=== PATIENT | male | born 1950 | race Caucasian/White ===

== ENCOUNTER 2016-09-10 15:18 | Inpatient (IN) ==
--- NOTE | 2016-09-10 15:29 | Emergency Department Note ---
Disposition Clinical Impression: Chest pain Disposition: Admitted As Inpatient Condition: Good Referrals: NO,PCP [Primary Care Provider] - Forms: ED Satisfaction Letter Chest Pain HPI - General Chief Complaint: ED Chest Pain Stated Complaint: CP Source: patient Limitations: no limitations Vital Signs Reviewed: Yes Nursing Notes Reviewed: Yes - History of Present Illness HPI Narrative: Patient comes in complaining of chest pain that started on Tuesday. Patient states that exertional in nature. He notes that when he ambulates to chest pain come on. Patient denies shortness of breath denies prior history of similar symptoms. Patient was seen at the [facility] for routine follow-up and while he was there working on the whole he had another episode of chest pain. Patient describes the pain as a pressure but does not radiate. Appears in little distress. Patient denies numbness and tingling denies fevers or chills. Patient denies catheterization or stress test in the past. Patient denies prior history of symptoms. Patient is currently chest pain free. At the [facility] patient had blood work done that was significant for troponin that was 0.08. Severity scale (1-10): 0 - Related Data Previous Rx's Medication Instructions Recorded HYDROcodone/Acet 5/325 mg [[place] 1 tab PO Q6H PRN #5 tab 01/12/16 5-325 mg] Ibuprofen [Motrin] 800 mg PO Q8HR PRN #30 tablet 01/12/16 Ondansetron HCl [Zofran] 4 mg PO DAILY PRN #20 tablet 01/12/16 Allergies Allergy/AdvReac Type Severity Reaction Status Date / Time No Known Allergies Allergy Verified 01/12/16 04:55 All systems ED: reviewed and negative except as stated. Chest Pain PMH - Past Medical History Medical history: Reports: hyperlipidemia, hypertension Psychiatric history: Reports: anxiety, depression - Social History Smoking Status: Current every day smoker Alcohol use: Reports: occasionally Drug use: Reports: none Physical Exam - General Limitations: no limitations General appearance: alert - Head Head exam: atraumatic, normocephalic, normal inspection - Eye Eye exam: Present: normal appearance, PERRL, EOMI - ENT ENT exam: normal exam, normal oropharynx, mucous membranes moist - Neck Neck exam: Present: normal inspection, full ROM, trachea midline - Chest Chest inspection: Present: normal inspection, symmetric chest wall rise - Respiratory Respiratory exam: Present: normal lung sounds bilaterally - Cardiovascular Cardiovascular exam: Present: regular rate, normal rhythm, normal heart sounds - Abdominal Exam Abdominal exam: Present: soft, Non-Tender. Absent: tenderness, distention, guarding, rebound, rigidity - Extremities Exam Extremities exam: Present: normal inspection, full ROM. Absent: tenderness, pedal edema - Back Exam Back exam: Present: normal inspection, full ROM. Absent: tenderness - Neurological Exam Neurological exam: Present: alert, oriented X3 - Psychiatric Psychiatric exam: Present: normal affect, normal mood - Skin Skin exam: Present: warm, dry, intact, normal color Course Vital Signs Temperature 97.9 F 09/10/16 15:20 Pulse Rate 84 09/10/16 15:20 Respiratory Rate 22 09/10/16 15:20 Blood Pressure 140/98 09/10/16 15:20 O2 Sat by Pulse Oximetry 98 09/10/16 15:20 Temperature 97.9 F 09/10/16 15:20 Pulse Rate 84 09/10/16 15:20 Respiratory Rate 22 09/10/16 15:20 Blood Pressure 140/98 09/10/16 15:20 O2 Sat by Pulse Oximetry 98 09/10/16 15:20 Oxygen Delivery Oxygen Delivery Room Air Chest Pain - Differential Diagnosis Likely: fracture of rib, pneumothorax, unstable angina pectoris, atypical chest pain, st elevation myocardial infraction, chest pain - Medical Records Medical records reviewed: Yes I reviewed the patient's medical records. - Lab Data Lab results reviewed: Yes I reviewed the patient's lab results. - EKG Data EKG results narrative: EKG is unchanged from previous EKG shows normal: sinus rhythm Rate: normal Rhythm: NSR
[2016-09-10] MEDS ORDERED: Naloxone 0.4 MG/ML INJ IVP PRN (17:47)
--- NOTE | 2016-09-10 18:01 | Internal Med History&Physical ---
Date of Encounter: 09/10/16 Time of Encounter: 17:55 Assessment and Plan (1) Chest pain Current visit: Yes Status: Acute Patient reporting exertional chest pain since Tuesday along with fatigue. He reports pain occurs each time he walks, and is relieved by rest. EKG with no changes. Initial troponin from [facility] elevated to 0.08. Repeat troponin here increased to 0.12. aspirin 325mg PO given by [facility] Consulted cardiology, spoke with Dr. Gonzalez, who recommended a loading dose of Plavix at 600mg PO, a low dose beta rizwan and heparin drip. He will see patient in the morning and most likely plan for a cardiac cath. Qualifiers: Chest pain type: precordial pain Qualified Code(s): R07.2 - Precordial pain (2) Elevated troponin Current visit: Yes Status: Acute Troponin of 0.08 from [facility], EKG with normal sinus and no changes from previous EKG in January. serial troponins for trend. Continuous teletypesetter monitor (3) Smoker Current visit: Yes Status: Acute Patient has smoked 1PPD since he was 18, for 48 pack years. Discussed smoking as a contributor to COPD and risk factor for cardiovascular disease. Discussed smoking cessation. Patient not ready to quit. offered nicotine patch while hospitalized, patient declined. (4) DVT prophylaxis Current visit: Yes Status: Acute Internal Medicine - H&P: HPI Chief complaint: chest pain Admitted From: Emergency Dept Plans for Post Hospital Care: Home History of present illness: Mr. Muhammad is a 66 year old male with hyperlipidemia, COPD, recent surgery for bladder cancer, who presented to the [facility] today with complaints of exertional chest pain for one week. He reports pain starts when he walks it is in the middle of his chest, it does not radiate. He denies any shortness of breath but reports that he has been feeling fatigued the last week. He denies any lightheadedness, dizziness, fainting, palpitations, nausea, or vomiting. He denies any recent infection, fever, chills. Workup at the [facility] was significant for elevated troponin to 0.08, EKG showed no changes from prior EKG in December with sinus rhythm. D-dimer was negative at 0.40, BNP was normal at 150. Patient reports he did have a stress test 1-2 months ago at [facility], he reports this was for routine annual checkup, not for any symptoms he was having at the time. We will attempt to obtain the record. On exam patient is alert and oriented, in no distress. He denies any current pain but reports he knows it would happen again if he got up to walk. Heart has regular rate and rhythm, lungs are clear bilaterally. Past Med Surg Social Fam HX - Past Medical History Medical history: cancer (bladder cancer s/p resection), COPD, hyperlipidemia Psychiatric history: anxiety, depression - Past Surgical History Surgical History: cancer surgery (Bladder tumor resectin) - Social History Smoking Status: Current every day smoker (48 pack year history) Smokeless Tobacco Status: No Alcohol use: occasionally Drug use: none - Family History Mother Living Status: Age at : 63 Cause of : brain aneurysm Father Living Status: Age at : 53 Cause of : [place] Internal Medicine - H&P: Meds Albuterol Sulfate [Albuterol Inhaler] 2 puff IH Q4H PRN 09/10/16 [History] Finasteride [Proscar] 5 mg PO DAILY 09/10/16 [History] Loratadine [Claritin] 10 mg PO DAILY 09/10/16 [History] Multivitamin [Multi-Day Vitamins] 1 each PO DAILY 09/10/16 [History] Oxybutynin Chloride [Ditropan Xl] 15 mg PO DAILY 09/10/16 [History] Sildenafil Citrate [Viagra] 100 mg PO DAILY PRN 09/10/16 [History] Tamsulosin [Flomax] 0.4 mg PO DAILY 09/10/16 [History] Tiotropium [Spiriva] 18 mcg IH DAILY 09/10/16 [History] Allergies No Known Allergies Allergy (Verified 01/12/16 04:55) All Systems PM: A 10-system review of systems was performed and is negative for pertinent findings except as documented above in the HPI. - Constitutional Constitutional: fatigue, no chills, no fever(s), no night sweats - EENT Eyes: no change in vision, no discharge, no pain, no photophobia Ears: no ear discharge, no ear pain, no tinnitus Nose, mouth and throat: no dysphagia, no nasal discharge, no neck pain, no sore throat - Cardiovascular Cardiovascular ROS IM: chest pain, no diaphoresis, no dyspnea, no lightheadedness, no palpitations, no syncope - Respiratory Respiratory: no cough, no dyspnea, no wheezing, no excessive phlegm production - Gastrointestinal Gastrointestinal: no abdominal pain, no diarrhea, no hematemesis, no hematochezia, no melena, no nausea, no vomiting - Musculoskeletal Musculoskeletal ROS IM: no numbness, no tingling - Integumentary Integumentary IM: no rash, no unusual bruising - Neurological Neurological ROS: no confusion, no convulsions, no focal weakness, no numbness, no tingling, no tremor(s) - Hematologic/Lymphatic Hematologic/Lymphatic: no easy bruising - Constitutional Vitals: Temp Pulse Resp BP Pulse Ox 97.7 F 76 16 151/95 98 09/10/16 17:19 09/10/16 17:19 09/10/16 17:19 09/10/16 17:19 09/10/16 17:35 General appearance: Present: A&O X 3, no acute distress - Head Head exam: Present: atraumatic, normocephalic - Eye Eye exam: Present: PERRL, conjuntiva pink, sclera anicteric Pupils: Present: PERRL - Neck Neck exam general surgery: Present: supple, trachea midline. Absent: lymphadenopathy - Respiratory Respiratory exam: Present: CTAB. Absent: accessory muscle use, rales, rhonchi, wheezes - Cardiovascular Cardiovascular exam: Present: RRR, +S1, +S2. Absent: diastolic murmur, gallop, rubs, systolic murmur - GI/Abdominal GI/Abdominal exam: Present: normal bowel sounds, soft, no peritoneal signs. Absent: distended, tenderness - Extremities Exam Extremities exam: Present: warm, radial pulses palpable and symetrical. Absent : calf tenderness, cyanotic, pedal edema - Neurological Exam Neurological exam: Present: CN II-XII intact, oriented X3, no focal deficits. Absent: pronater drift, facial droop, speech deficit - Skin Skin exam: Present: dry, intact Internal Med - H&P Results - Labs CBC & Chem 7: 09/10/16 18:58 09/10/16 18:31 Labs: Labs from [facility]: Troponin 0.08 BNP 150 CK 145 AST 39 ALT 25 Total Bili 0.6 Alk phos 138 CA 8.6 total protein 7.5 Albumin 3.7 Mg 2.3 NA 140 potassium: hemolyzed Cl 109 CO2 24 Glucose 89 BUN 16 Cr 0.94 WBC 7.9 RBC 5.0 HGB 16.0 HCT 46.6 PLT 211.0 - VTE Documentation of Mechanical Device: Graduated compression elastic hosiery
[2016-09-10] MEDS ORDERED: Aspirin 325 MG TABLET PO ONE (18:38)
[2016-09-10] MEDS ORDERED: *HR* Heparin 5,000 UNIT/ML VIAL IVP PRN ×2 (18:43)
[2016-09-10] MEDS ORDERED: *HR* Heparin 5,000 UNIT/ML VIAL IVP ONE (18:43)
[2016-09-10] MEDS ORDERED: Heparin 25,000 UNIT/500 ML D5W 25,000 UNIT/500 ML MLS IVC SCH (18:45)
[2016-09-10 19:03] LABS: BUN/Creatinine Ratio 25 (6-26); Blood Urea Nitrogen 21 mg/dL (8-26); Calcium 8.9 mg/dL (8.6-10.8); Carbon Dioxide 20 mEq/L (19-29); Chloride 108 mEq/L (98-109); Glucose 99 mg/dL (70-99); Osmolality,Calculated 293 (280-300); Sodium 140 mEq/L (136-145); eGFR For African Americans > 60 (> 60); eGFR For Non-African Americans > 60 (> 60)
[2016-09-10 19:08] LABS: Hematocrit 43.4 % (37.5-50.1); Hemoglobin 15.1 g/dL (12.9-16.9); Immature Platelets 3.3 % (1.1-6.1); Mean Corpuscular HGB Conc 34.8 g/dL (31.6-35.5); Mean Corpuscular Hemoglobin 32.1 pg (28.0-33.3); Mean Corpuscular Volume 92.1 fL (83.0-100.0); Mean Platelet Volume 9.7 fL (9.4-12.4); Red Blood Count 4.71 M/mcL (4.19-5.50); Red Cell Distribution Width 12.8 % (11.5-14.5)
[2016-09-10 19:13] LABS: INR 1.2; Prothrombin Time 12.8 Seconds (9.4-12.1)
[2016-09-10 19:16] LABS: Activated Partial Thrombo Time 33.9 Seconds (26.0-36.0)
[2016-09-10] MEDS ORDERED: *HR* Heparin 5,000 UNIT/ML VIAL SQ SCH (20:00)
[2016-09-11 05:09] LABS: Basophils # 0.1 K/mcL (0.0-0.2); Eosinophils # 0.1 K/mcL (0.0-0.6); Eosinophils % 0.8 %; Hematocrit 41.7 % (37.5-50.1); Hemoglobin 14.8 g/dL (12.9-16.9); Immature Granulocytes % 0.4 % (0-4); Lymphocytes # 2.2 K/mcL (0.6-4.6); Lymphocytes % 29.2 %; Mean Corpuscular HGB Conc 35.5 g/dL (31.6-35.5); Mean Corpuscular Hemoglobin 32.6 pg (28.0-33.3); Mean Corpuscular Volume 91.9 fL (83.0-100.0); Mean Platelet Volume 10.3 fL (9.4-12.4); Monocytes # 0.7 K/mcL (0.0-1.3); Monocytes % 8.5 %; Neutrophils # 4.6 K/mcL (1.6-8.9); Platelet Count 197 K/mcL (140-400); Red Blood Count 4.54 M/mcL (4.19-5.50); Red Cell Distribution Width 12.8 % (11.5-14.5); Segmented Neutrophils % 60.1 %
[2016-09-11 05:22] LABS: BUN/Creatinine Ratio 25 (6-26); Blood Urea Nitrogen 21 mg/dL (8-26); Carbon Dioxide 20 mEq/L (19-29); Chloride 108 mEq/L (98-109); Chol/HDL Ratio 6.5 (0-4.9); Cholesterol 213 mg/dL (< 200); Glucose 89 mg/dL (70-99); HDL Cholesterol 33 mg/dL (40-59); LDL Cholesterol,Calculated 155 mg/dL (0-99); Osmolality,Calculated 290 (280-300); Potassium 3.8 mEq/L (3.5-4.5); Sodium 139 mEq/L (136-145); Triglycerides 124 mg/dL (< 150); eGFR For African Americans > 60 (> 60); eGFR For Non-African Americans > 60 (> 60)
[2016-09-11] MEDS: Tiotropium 18 MCG inhalation IH SCH (07:41)
[2016-09-11] MEDS: Finasteride 5 MG TABLET PO SCH (08:04)
[2016-09-11] MEDS: Loratadine 10 MG TABLET PO SCH (08:04)
[2016-09-11] MEDS: Multivit/Ca/Min/Fe/FA 1 TAB TABLET PO SCH (08:05)
[2016-09-11] MEDS: Nitroglycerin 0.4 MG TAB.SUBL SL PRN ×3 (08:30→22:11)
--- NOTE | 2016-09-11 08:42 | Cardiology Consult Note ---
Date of Encounter: 09/11/16 Time of Encounter: 08:32 Assessment and Plan (1) Non-STEMI (non-ST elevated myocardial infarction) Current Visit: Yes Status: Acute Late presenting VT. C/o chest pain for one week. Troponin 0.26, 0.25, and 0.12. EKG shows normal sinus rhythm, heart rate 67 bpm, possible previous inferior VT. Heparin drip per ACS protocol. Aspirin, statin, beta rizwan, and Plavix. Check TTE. Patient continues to have chest discomfort. Instructed nursing staff to give him nitroglycerin. LHC including risks, alternatives, benefits, and indications discussed with patient. He agrees to proceed. Smoking cessation and aggressive risk factor modification. (2) Hypertension Current Visit: Yes Status: Acute B/p accepatble. Qualifiers: Hypertension type: essential hypertension Qualified Code(s): I10 - Essential (primary) hypertension (3) Bladder cancer Current Visit: Yes Status: Chronic Reports recent diagnosis of bladder cancer status post cystoscopy with biopsies. Awaiting follow-up with oncology. CT scan 12/2015 showed acute cholecystitis without cholelithiasis. Coronary artery disease. A right lower lobe pulmonary nodule. Repeat CT in 3 months recommended to evaluate pulmonary nodule. And a possible bladder tumor. Patient did proceed with cystoscopy with bladder scraping. Qualifiers: Bladder location: unspecified site Qualified Code(s): C67.9 - Malignant neoplasm of bladder, unspecified (4) Smoker Current Visit: Yes Status: Acute Smoking cessation. (5) Cholecystitis Current Visit: Yes Status: Chronic CT in December 2015 showed acute cholecystitis without cholelithiasis. Follow-up ultrasound showed possible chronic cholecystitis. Patient denies recurrent abdominal pain. Cholecystectomy was deferred secondary to bladder cancer at that time. Discussion w patient/family: The assessment and plan as outlined above was discussed with the patient and/or family members who expressed understanding and agreement. All questions were answered. Thank you for involving us in the care of your patient. Please call with any questions. History of Present Illness Consult date: 09/11/16 Requesting physician: Gianna Wise Consult reason: NSTEMI Chief complaint: Chest pain History of present illness: Mr. Muhammad is a 66 year old male who presented with intermittent midsternal chest pain with exertion since Tuesday. He associates his symptoms with shortness of breath, nausea, and dizziness. He currently has midsternal heaviness that is constant. He reports overall malaise for the last 24 hours. Past medical history includes recently diagnosed bladder cancer, hypertension, and tobacco use for 60 years. Troponins are found to be elevated at 0.26, 0.25, 0.16. His EKG shows normal sinus rhythm possible old inferior VT. Past Med Surg Social Fam HX - Past Medical History Medical history: cancer (bladder cancer s/p resection), COPD, hyperlipidemia Psychiatric history: anxiety, depression - Past Surgical History Surgical History: cancer surgery (Bladder tumor resectin) - Social History Smoking Status: Current every day smoker (48 pack year history) Smokeless Tobacco Status: No Alcohol use: occasionally Drug use: none - Family History Mother Living Status: Age at : 63 Cause of : brain aneurysm Father Living Status: Age at : 53 Cause of : [place] Medications and Allergies Albuterol Sulfate [Albuterol Inhaler] 2 puff IH Q4H PRN 09/10/16 [History] Finasteride [Proscar] 5 mg PO DAILY 09/10/16 [History] Loratadine [Claritin] 10 mg PO DAILY 09/10/16 [History] Multivitamin [Multi-Day Vitamins] 1 each PO DAILY 09/10/16 [History] Oxybutynin Chloride [Ditropan Xl] 15 mg PO DAILY 09/10/16 [History] Sildenafil Citrate [Viagra] 100 mg PO DAILY PRN 09/10/16 [History] Tamsulosin [Flomax] 0.4 mg PO DAILY 09/10/16 [History] Tiotropium [Spiriva] 18 mcg IH DAILY 09/10/16 [History] Allergies No Known Allergies Allergy (Verified 01/12/16 04:55) All Systems Review: A 10-system review of systems was performed and is negative for pertinent findings except as documented above in the HPI. Physical Examination Vital Signs, Last 4 Hours Temp Pulse Resp BP Pulse Ox 09/11/16 07:42 18 98 09/11/16 07:00 63 14 140/87 98 09/11/16 05:35 97.7 F 61 16 129/83 99 General: Conversant, No Apparent Distress, Other (Ill appearing) HEENT: Atraumatic, Normocephaly, Mucus Membranes Moist Neck: No JVD, Normal carotid pulses Cardiac: Reg Rate and Rhythm, Normal S1 and S2, No Murmur Lungs: Normal Breath Sounds, No Wheeze, Rales, Rhonchi Neuro: Alert and responsive, No focal deficits noted Abdomen: Soft, Non-Tender Skin: No rashes noted on visualized skin Musculoskeletal: No Chest Wall Tenderness Extremities: No Clubbing, No Cyanosis, No Edema, Normal Pulses Results 09/11/16 03:30 09/11/16 03:30 Lab Results 09/10/16 09/10/16 09/10/16 17:26 18:31 18:58 WBC 8.0 Hgb 15.1 Hct 43.4 Plt Count 235 INR APTT Sodium 140 Potassium 4.0 Chloride 108 Carbon Dioxide 20 BUN 21 Creatinine 0.84 Glucose 99 Calcium 8.9 Troponin I 0.12 H* 09/10/16 09/11/16 09/11/16 18:58 00:55 03:30 WBC Hgb Hct Plt Count INR 1.2 APTT 33.9 58.1 H D Sodium Potassium Chloride Carbon Dioxide BUN Creatinine Glucose Calcium Troponin I 0.25 H* 09/11/16 09/11/16 09/11/16 03:30 03:30 05:35 WBC 7.6 Hgb 14.8 Hct 41.7 Plt Count 197 INR APTT Sodium 139 Potassium 3.8 Chloride 108 Carbon Dioxide 20 BUN 21 Creatinine 0.85 Glucose 89 Calcium 9.0 Troponin I 0.26 H* - Imaging and Cardiology Echo: pending - EKG Interpretation EKG results cardiology: personally reviewed (Sinus rhythm with no acute ST changes. Possible old inferior VT.) Consult Discharge Plan - Plan [facility]errals: [facility] [Primary Care Provider] -
--- NOTE | 2016-09-11 10:47 | Pre-Sedation Evaluation ---
Pre-sedation evaluation - Pre-sedation checklist Date of procedure: 09/11/16 Procedure: Cardiac cath Recent Vitals: Last Vital Signs Temp 97.7 F 09/11/16 05:35 Pulse 63 09/11/16 07:00 Resp 18 09/11/16 07:42 BP 140/87 09/11/16 07:00 Pulse Ox 98 09/11/16 07:42 H&P (including ROS) documented in medical record: Yes Previous reaction to sedatives/anesthetics: No Dietary Status: NPO after Midnight Airway Assessment: Patient can open mouth completely, TMJ function normal, Micrognathia (under-bite, receding chin) absent, Neck with adequate range of motion Dentition: dentures removed Possible difficult airway: No ASA Classification *see protocol: CLASS II-Mild systemic disease Plan of Care: Pt appropriate candidate for procedure/moderate/conscious sedation , Risks/benefits of procedure/sedation discussed w/ patient/family
[2016-09-11] MEDS ORDERED: 0.9 % Sodium Chloride 1,000 ML ONE ×3 (10:49→14:02)
[2016-09-11] MEDS ORDERED: Nitroglycerin 1,000 MCG/10 ML VIAL IV ONE (10:49)
[2016-09-11] MEDS ORDERED: Heparin 1,000 UNITS/500 mL NS 500 ML ONE (10:49)
[2016-09-11] MEDS ORDERED: *HR* Heparin 10,000 UNIT/10 ML VIAL ONE (10:49)
[2016-09-11] MEDS ORDERED: *HR* FentaNYL (PF) 100 MCG/2 ML VIAL ONE (11:15)
[2016-09-11] MEDS ORDERED: *HR* Midazolam HCl 5 MG/5 ML VIAL IVP ONE (11:15)
--- NOTE | 2016-09-11 12:00 | Internal Med Progress Note ---
<Rosales Lobo - Last Filed: 09/11/16 11:58> Date of Encounter: 09/11/16 Time of Encounter: 09:30 - Assessment and plan (1) Non-STEMI (non-ST elevated myocardial infarction) Current Visit: Yes Status: Acute Assessment and plan: It is suspected that his symptoms are a late presentation of MA, with his history of chest pain for one week. His troponin levels are 0.25, 0.26, 0.12 and EKG was normal sinus rhythm. He is currently on a heparin drip and on aspirin, statin, beta rizwan, Plavix. Awaiting [facility] catheterization. Patient risk factors include current smoker, hypercholesterolemia, hypertension. Family history significant for father from MA at the age of 53. Plan: - [facility] today. - Continue aspirin, Plavix, heparin drip, atorvastatin, metoprolol at this time. - Awaiting post catheterization results and recommendations from cardiology. - Transthoracic echocardiogram ordered per cardiology awaiting results. (2) Hypercholesterolemia Current Visit: Yes Status: Acute Assessment and plan: Cholesterol 213, LDL 155, VLDL 25, HDL 33, cholesterol HDL ratio 6.5. Patient was not on a statin medication at the time of admission. Plan: - Start atorvastatin 80 mg by mouth at bedtime - Monitor AST/ALT with a.m. labs. (3) Smoker Current Visit: Yes Status: Acute Assessment and plan: Patient is occurring every day smoker with a history of COPD. His smoking is likely contributing to his atherosclerotic disease and current elevated troponins associated with chest pain. It would be highly recommended that the patient no longer smokes as this will only increase his risk of further progression of COPD, coronary artery disease, bladder cancer. (4) COPD (chronic obstructive pulmonary disease) Current Visit: Yes Status: Acute Assessment and plan: Patient has known history of COPD. Currently stable condition. Plan: - Continue Spiriva, albuterol Qualifiers: Qualified Code(s): J44.9 - Chronic obstructive pulmonary disease, unspecified - Subjective Interval history: Mr. Muhammad 66-year-old male has been seen and evaluated patient bedside this morning. He is alert awake interactive in no acute distress awaiting cardiac catheterization. He denies any chest pain, chest pressure, palpitations, back pain, pain radiation to his neck or his arm, change in vision, headache, swelling in his extremities. He has no questions or concerns at this time prior to his catheterization but is hoping for good news. He denies any other concerns at this time her questions. - Constitutional Vitals: Temp Pulse Resp BP Pulse Ox 97.7 F 63 18 140/87 98 09/11/16 05:35 09/11/16 07:00 09/11/16 07:42 09/11/16 07:00 09/11/16 07:42 General appearance: Present: cooperative, A&O X 3, no acute distress - Head Head exam: Present: atraumatic, normocephalic - Eye Eye exam: Present: PERRL, conjuntiva pink, sclera anicteric Pupils: Present: PERRL - Neck Neck exam general surgery: Present: supple, trachea midline. Absent: lymphadenopathy - Respiratory Respiratory exam: Present: CTAB. Absent: accessory muscle use, rales, rhonchi, wheezes - Cardiovascular Cardiovascular exam: Present: RRR, +S1, +S2. Absent: diastolic murmur, gallop, rubs, systolic murmur - GI/Abdominal GI/Abdominal exam: Present: normal bowel sounds, soft, no peritoneal signs. Absent: distended, tenderness - Extremities Exam Extremities exam: Present: warm, radial pulses palpable and symetrical. Absent : calf tenderness, cyanotic, pedal edema - Neurological Exam Neurological exam: Present: alert, oriented X3, no focal deficits. Absent: pronater drift, facial droop, speech deficit - Psychiatric Psychiatric exam: Present: normal affect, normal mood - Skin Skin exam: Present: warm Internal Medicine: Result - Labs CBC & Chem 7: 09/11/16 03:30 09/11/16 03:30 Labs: Short CBC 09/10/16 09/11/16 Range/Units 18:58 03:30 WBC 8.0 7.6 (4.3-11.1) K/mcL Hgb 15.1 14.8 (12.9-16.9) g/dL Hct 43.4 41.7 (37.5-50.1) % Plt Count 235 197 (140-400) K/mcL Neutrophils # 4.6 (1.6-8.9) K/mcL BMP 09/10/16 09/11/16 18:31 03:30 Sodium 140 139 Potassium 4.0 3.8 Chloride 108 108 Carbon Dioxide 20 20 BUN 21 21 Creatinine 0.84 0.85 Glucose 99 89 Calcium 8.9 9.0 Cardiac Enzymes 09/10/16 09/11/16 09/11/16 Range/Units 17:26 00:55 05:35 Troponin I 0.12 H* 0.25 H* 0.26 H* (0-0.03) ng/mL - ABG Interpretation ABG results: PT/INR, D-dimer PT 12.8 Seconds (9.4-12.1) H 09/10/16 18:58 - VTE Documentation of Mechanical Device: Graduated compression elastic hosiery Consult Discharge Plan - Plan Referrals: [place],PCP [Primary Care Provider] - <Norman Davila - Last Filed: 09/11/16 17:07> - Assessment and plan (1) Non-STEMI (non-ST elevated myocardial infarction) Current Visit: Yes Status: Acute (2) CAD (coronary artery disease) Current Visit: Yes Status: Chronic Qualifiers: Coronary Disease-Associated Artery/Lesion type: rincon artery [place] vs. transplanted heart: rincon heart Associated angina: with unstable angina Qualified Code(s): I25.110 - Atherosclerotic heart disease of rincon coronary artery with unstable angina pectoris (3) COPD (chronic obstructive pulmonary disease) Current Visit: Yes Status: Acute Qualifiers: COPD type: unspecified COPD Qualified Code(s): J44.9 - Chronic obstructive pulmonary disease, unspecified (4) Hypercholesterolemia Current Visit: Yes Status: Chronic (5) Hypertension Current Visit: Yes Status: Chronic Qualifiers: Hypertension type: essential hypertension Qualified Code(s): I10 - Essential (primary) hypertension (6) Tobacco abuse Current Visit: Yes Status: Chronic (7) Bladder cancer Current Visit: Yes Status: Chronic Qualifiers: Bladder location: unspecified site Qualified Code(s): C67.9 - Malignant neoplasm of bladder, unspecified - Constitutional Vitals: Temp Pulse Resp BP Pulse Ox 97.5 F L 80 18 133/78 95 09/11/16 15:47 09/11/16 16:50 09/11/16 16:50 09/11/16 16:20 09/11/16 16:50 Internal Medicine: Result - Labs CBC & Chem 7: 09/11/16 03:30 09/11/16 03:30 Labs: Short CBC 09/10/16 09/11/16 Range/Units 18:58 03:30 WBC 8.0 7.6 (4.3-11.1) K/mcL Hgb 15.1 14.8 (12.9-16.9) g/dL Hct 43.4 41.7 (37.5-50.1) % Plt Count 235 197 (140-400) K/mcL Neutrophils # 4.6 (1.6-8.9) K/mcL BMP 09/10/16 09/11/16 18:31 03:30 Sodium 140 139 Potassium 4.0 3.8 Chloride 108 108 Carbon Dioxide 20 20 BUN 21 21 Creatinine 0.84 0.85 Glucose 99 89 Calcium 8.9 9.0 Cardiac Enzymes 09/10/16 09/11/16 09/11/16 Range/Units 17:26 00:55 05:35 Troponin I 0.12 H* 0.25 H* 0.26 H* (0-0.03) ng/mL - ABG Interpretation ABG results: PT/INR, D-dimer PT 12.8 Seconds (9.4-12.1) H 09/10/16 18:58 - Attending Attestation I examined this patient and my medical decision-making was reviewed with the Resident Physician on 09/11/16. I agree with the documented findings, disposition and treatment plan as described except to the extent set forth below. Mr. Muhammad is currently admitted for acute NSTEMI. He is at moderate to high risk due to potential for worsening cardiac status. It is thought that this is a late presentation of an MA. Mr. Muhammad went to cardiac cath today. He underwent PTCA and is feeling OK at this time. No CP or SOB. Leg feels OK. Exam alert. comfortable Heart reg No wheeze I/P 1. Acute NSTEMI s/p PTCA 2. CAD Further diagnoses and plan as above.
[2016-09-11] MEDS ORDERED: Ondansetron 4 MG/2 ML VIAL IVP PRN (12:26)
--- NOTE | 2016-09-11 12:31 | Invasive Diagnostic Lab Proc ---
Name: Joel Muhammad Date of Study: 09/11/2016 Date: 1950 Ht: 68.9in Medical Record#: [id number] Age: 66 Wt: 200.62lb Gender: Male BSA: 2.07 Order #: [id number] BMI: 29.71 Physicians Procedure Physician: Theresa Ward MD, [facility] Referring MD: [facility] Referring MD: Staff Name Position Time In Rodney Ballesteros RN Monitor 11:15 AM Chhaya Santo RN Tax Evaluator 11:15 AM Holli Robin RT (R) Scrub 11:15 AM Indications Indication Non-Stemi Procedures Performed Procedure L HRT ARTERY/VENTRICLE ANGIO PRQ CARDIAC ANGIOPLAST 1 ART Pre-Procedure Checklist Informed consent is complete signed and on chart. H\\T\\P is on chart. ID band is on and ID verified with patient. Patient NPO for procedure The procedure was described for the patient and questions were answered. Blood Pressure: 140/87 ECG is on chart. Rhythm: NSR Plan of Care Patient will tolerate the procedure without complications. Adequate level of comfort will be maintained. Hemodynamics will remain stable Patient will recover from procedure without complications. Respiratory function will be maintained. Cardiac rhythm will remain stable. Patient temperature will be maintained. Patient and/or family have verbalized understanding of the procedure. Patient Education Chief Complaint/Reason for Test: Cardiac Cath Developmental Category: Geriatric (65+ years) Developmentally Appropriate for Age: Yes Learning Barriers: None Education Needs: Procedure Education Method: Verbal Information Taught: Cardiac Cath Educational Evaluation: Able to repeat information Intravenous Access Time IV Size Location DC'd Fluid/Drip Rate Units RN 10:57 AM 18g 1 1/4" Patent On Arrival Lt Antecubital 0.9NaCl 25 ml/hr Chhaya Santo RN 10:57 AM 20g 1 1/4" Patent On Arrival Rt Forearm Chhaya Santo RN Allergies No Known Allergies Vital Signs Time BP (mmHg) HR (bpm) O2 Sat. RR (bpm) LOC 10:58 AM 140 / 87 63 98 % 18 5 = Fully awake and oriented or at pre-proc level 11:15 AM / % 5 = Fully awake and oriented or at pre-proc level 11:15 AM / % 4 = Oriented but drowsy 11:30 AM / % 4 = Oriented but drowsy 11:46 AM / % 4 = Oriented but drowsy 11:15 AM 138 / 72 65 100 % 18 11:20 AM 118 / 73 64 95 % 21 11:25 AM 112 / 66 58 98 % 17 11:30 AM 114 / 63 58 98 % 17 11:35 AM 121 / 69 66 96 % 13 11:40 AM 116 / 67 75 96 % 14 11:45 AM 124 / 72 63 97 % 17 11:50 AM 133 / 76 71 96 % 10 11:55 AM 125 / 85 73 98 % 17 12:00 PM 126 / 84 72 96 % 15 12:05 PM 103 / 71 75 95 % 17 12:10 PM 117 / 68 66 95 % 12:01 PM / % 4 = Oriented but drowsy Procedural Medications Time Medication Dose Units Method Given By 11:15 AM Oxygen 2 L/min nasal cannula Chhaya Santo RN 11:16 AM Versed 2 mg Intravenous Chhaya Santo RN 11:16 AM Fentanyl 50 mcg Intravenous Chhaya Santo RN 11:24 AM Lidocaine 2% 14 ml Subcutaneous Theresa Ward MD, FACC 11:47 AM Heparin 2000 units Intravenous Chhaya Santo RN 11:48 AM Versed 1 mg Intravenous Chhaya Santo RN 11:48 AM Fentanyl 25 mcg Intravenous Chhaya Santo RN 12:01 PM Nitroglycerin 200 mcg Intracoronary Theresa Ward MD, FACC 12:06 PM Plavix 75 mg Orally Chhaya Santo RN ASA Classification: CLASS II- Mild systemic disease (i.e. well-controlled diabetes, hypertension, asthma, cigarette smoking) Flavio Score Preprocedure Postprocedure Activity 2- Moves 4 extremities sustained head lift Activity 2- Moves 4 extremities sustained head lift Circulation 2- SBP +/= 20 points of pre-anesthetic level Circulation 2- SBP +/= 20 points of pre-anesthetic level Consciousness 2- Awake and alert oriented x 3 Consciousness 1- Responds to verbal stimuli drowsy O2 Saturation 2- Able to maintain O2 satruation of 92% on room air O2 Saturation 2- Able to maintain O2 satruation of 92% on room air Respiratory 2- Able to deep breathe and cough well Respiratory 2- Able to deep breathe and cough well Total Score 10 Total Score 9 Contrast Agent: Isovue Activated Clotting Time Time Seconds to Clot 11:47 AM 160 12:03 PM 400 12:11 PM 400 Procedure Log Time Note Enter By 10:49 AM CathStat 11:14 AM Vitals capture started with the following parameters, Patient=Adult, Interval=5 min, Initial Vmxzvrtg=134 mmHg, Deflation Rate=5 mmHg, Cuff placed on Right Arm 11:15 AM Pt arrived to labor crew supervisor 2 at 11:15 [facility] AM Rodney Ballesteros RN Position: Monitor Time in: 11:15 [facility] 11:15 AM Chhaya Santo RN Position: Tax Evaluator Time in: 11:15 [facility] 11:15 AM Patient charges- Angio tray pack, Navilyst 3mm J, Pulse Oximetry and ACIST tubing and transducer csmith 11:15 AM Holli Robin RT (R) Position: Scrub Time in: 11:15 [facility] 11:15 AM [facility] :[facility] 11:15 AM ASA Class CLASS II- Mild systemic disease (i.e. well-controlled diabetes, hypertension, asthma, cigarette smoking) [facility] 11:15 AM Meet and greet completed [facility] 11:15 AM Sign in performed according to hospital policy. [facility] 11:15 AM Procedure start :15 [facility] 11:15 AM Case Start 11:15 AM HR=65 bpm, HRMA=025/72 mmhg, LyL2=412 %, Resp=18 B/min, Comment=NSR 11:15 AM Time: :15 Oxygen on at 2 L/min per nasal cannula by Chhaya aSnto RN [facility] 11:15 AM Time: 11:15 Patient comfortable and pain free: Yes [facility] 11:15 AM Time: 11:15LOC: 5 = Fully awake and oriented or at pre-proc level [facility] :16 AM Time: 11:16 Versed 2 mg Intravenous Given by Chhaya Santo RN [facility] 11:16 AM Time: 11:16 Fentanyl 50 mcg Intravenous Given by Chhaya Santo RN [facility] 11:20 AM HR=64 bpm, HRDY=034/73 mmhg, SpO2=95.0 %, Resp=21 B/min, Comment=NSR :24 AM Pressure channel 1 zero failed. 11:24 AM Pressure channel 1 zeroed. 11:24 AM Time out performed according to hospital policy [facility] 11:25 AM HR=58 bpm, UENR=720/66 mmhg, SpO2=98.0 %, Resp=17 B/min, Comment=SB AM Time: 11:24 14 ml Lidocaine 2% to right groin Subcutaneous Given by Theresa Ward MD, [facility] csmith 11:26 AM Access obtained by percutaneous puncture. 5Fr 10cm Terumo [place] sheath placed in right Femoral artery. [id number] csmith 11:27 AM 5Fr FL 4 catheter inserted over the wire [facility] 11:27 AM 0.035 145cm Navilyst 3mmJ wire [id number] [facility] 11:28 AM Recorded Pressure: Ao, HR=59, Condition=Condition 1 (Aorta) Ao 109/71/88 11:29 AM LCA angiography performed in multiple views. [facility] 11:29 AM Recorded ECG: HR=61 Condition=Condition 1 11:29 AM Catheter removed csmith 11:29 AM 5Fr FR 4 catheter inserted over the wire [facility] 11:30 AM HR=58 bpm, TISY=275/63 mmhg, SpO2=98.0 %, Resp=17 B/min, Comment=SB 11:30 AM Time: 11:15LOC: 4 = Oriented but drowsy [facility] 11:30 AM Time: 11:15 Patient comfortable and pain free: Yes [facility] 11:34 AM catheter [facility] 11:34 AM searching for anamalous circ, coronary anatomy so far suggestive of anamalous circ csmith 11:34 AM 5Fr 3DRC catheter inserted over the wire [id number] [facility]smith 11:35 AM HR=66 bpm, CTZP=894/69 mmhg, SpO2=96.0 %, Resp=13 B/min, Comment=NSR 11:40 AM anamalous circ angiography performed in mutliple views, difficult to engage csmith 11:40 AM HR=75 bpm, PPXH=815/67 mmhg, SpO2=96.0 %, Resp=14 B/min, Comment=NSR 11:42 AM [facility]atheter [facility] 11:42 AM 5Fr Pigtail catheter inserted over the wire [facility] 11:42 AM Catheter selectively placed in left ventricle csmith 11:43 AM Bolus angiogram of left Ventricle complete: 8 ml/sec for a total of 24 mls [facility] 11:43 AM Pressure channel 1 zeroed. 11:43 AM Recorded Pressure: LV, HR=67, Condition=Condition 1 (Left Ventricle) LV 99/8/8 11:44 AM Recorded Pressure: LV, Ao, HR=69, Condition=Condition 1 (Left Ventricle) LV 103/14/16, (Aorta) Ao 109/71/88 11:44 AM Catheter removed csmith 11:45 AM [facility] called for 2N bed request csmith 11:45 AM Sheath exchanged for a 6 Fr 11 cm Cordis April sheath [id number] [facility] 11:45 AM act drawn and running [facility] 11:45 AM HR=63 bpm, NWPB=849/72 mmhg, SpO2=97.0 %, Resp=17 B/min, Comment=NSR 11:45 AM PCI Status Urgent csmith 11:46 AM Time: 11:30 Patient comfortable and pain free: Yes [facility] 11:46 AM Time: 11:30LOC: 4 = Oriented but drowsy [facility] 11:46 AM PCI lesion in Right PDA. Pre Stenosis: 99 Pre AVERY Flow: [facility] 11:46 AM 6Fr 3DRC [place] Bright-Tip guide catheter was used to cannulate the PCI vessel successfully. reused? No [facility] 11:46 AM .014 Prowater 180cm guide wire across target lesion- successful. reused? No [facility] 11:47 AM Inflation device was opened. [facility] 11:47 AM At 11:47 the ACT was 160 seconds. [facility] 11:47 AM Time: 11:47 Heparin 2000 units Intravenous Given by Chhaya Santo RN [facility] 11:48 AM Time: 11:48 Versed 1 mg Intravenous Given by Chhaya Santo RN [facility] 11:48 AM Time: 11:48 Fentanyl 25 mcg Intravenous Given by Chhaya Santo RN [facility] 11:50 AM HR=71 bpm, UEZC=323/76 mmhg, SpO2=96.0 %, Resp=10 B/min, Comment=NSR 11:53 AM 2.0 mm x 12 mm Emerge Monorail balloon across target lesion- successful. reused? No [facility] 11:55 AM HR=73 bpm, ILBH=497/85 mmhg, SpO2=98.0 %, Resp=17 B/min, Comment=NSR 11:55 AM Balloon inflated @ 6 eber for 20 seconds [facility] 11:57 AM Balloon catheter removed intact. [facility] 11:57 AM 2.0mm x 15mm Multi-Link Mini Vision RX Stent bare metal stent across target lesion- successful Lot #[id number] [facility] 11:58 AM act drawn and running csmith 12:00 PM HR=72 bpm, ETBB=203/84 mmhg, SpO2=96.0 %, Resp=15 B/min, Comment=NSR 12:01 PM Time: 11:46LOC: 4 = Oriented but drowsy csmith 12:01 PM Time: 11:46 Patient comfortable and pain free: Yes csmith 12:01 PM BMS withdrawn intact and undeployed, repositioining coronary wire csmith 12:02 PM Time: 12:01 Nitroglycerin 200 mcg Intracoronary Given by Theresa Ward MD, [facility] csmith 12:03 PM At 12:03 the ACT was 400+ seconds. csmith 12:03 PM wire removed csmith 12:05 PM catheter removed csmith 12:05 PM HR=75 bpm, HCVU=448/71 mmhg, SpO2=95.0 %, Resp=17 B/min, Comment=NSR 12:06 PM Bolus angiogram of right Femoral complete: 4 ml/sec for a total of 7 mls csmith 12:06 PM Time: 12:06 Plavix 75 mg Orally Given by Chhaya Santo RN [facility]smith 12:07 PM act drawn and running csmith 12:07 PM Procedure completed at 12:07 csmith 12:10 PM HR=66 bpm, XBIL=075/68 mmhg, SpO2=95.0 % 12:11 PM At 12:11 the ACT was 400+ seconds. csmith 12:11 PM Isovue 370 - 500ml,1 Bottle(s) used. csmith 12:12 PM Sheath left in place to be pulled on floor/holding area csmith 12:12 PM Post ECG NSR csmith 12:12 PM Post Blood Pressure 117/68 csmith 12:12 PM 12:12 Post Pulses Bilateral DP 2+ csmith 12:12 PM Information taught Cardiac Cath and PCI csmith 12:12 PM Education needs Responsibilities of Patient in Care csmith 12:12 PM Learning barriers :Sedated csmith 12:12 PM Education Methods Verbal csmith 12:12 PM Education evaluation Able to repeat information csmith 12:13 PM Site status No bleeding/hematoma - Rt Groin as reported by Holli Robin RT (R) at 12:12 csmith 12:13 PM Opsite applied csmith 12:13 PM Plavix, Effient or Brilinta given Yes csmith 12:13 PM Family placed in consult room. csmith 12:16 PM Time: 12:01 Patient comfortable and pain free: Yes csmith 12:16 PM Time: 12:01LOC: 4 = Oriented but drowsy csmith 12:16 PM Time: 12:16 Patient comfortable and pain free: Yes csmith 12:17 PM Lesion found in Proximal RCA. Pre Stenosis: 50 Pre AVERY Flow: csmith 12:17 PM Lesion found in Mid RCA. Pre Stenosis: 40 Pre AVERY Flow: csmith 12:17 PM Lesion found in Distal RCA. Pre Stenosis: 30 Pre AVERY Flow: csmith 12:17 PM Lesion found in Proximal LAD. Pre Stenosis: 50 Pre AVERY Flow: csmith 12:17 PM Lesion found in Mid LAD. Pre Stenosis: 30 Pre AVERY Flow: csmith 12:17 PM Lesion found in 1st Diagonal. Pre Stenosis: 40 Pre AVERY Flow: csmith 12:17 PM Lesion found in 2nd Diagonal. Pre Stenosis: 40 Pre AVERY Flow: csmith 12:18 PM Lesion found in Proximal Circumflex. Pre Stenosis: 30 Pre AVERY Flow: csmith 12:24 PM Patient out of room: 12:20 csmith Hemodynamics Pressures Site Systolic/A Wave Diastolic/V Wave Mean AO 109 71 88 LV 99 8 8 LV 103 14 16 AO 109 71 88 Post Procedure Information Blood Pressure: 117/68 mmHg Rhythm: NSR Post procedural instructions were given Closure Device Time Device Success/Fail Mechanical Compression Successful Site Checks Time Location Status Staff Sheath In? Note 12:12 PM Rt Groin No bleeding/hematoma Holli Robin RT (R) Pulses Time Site Pre-Procedure Post-Procedure Note 09/11/2016 10:57:00 AM Bilateral DP 2+ 09/11/2016 10:57:00 AM Bilateral radial 1+ 12:12:00 PM Bilateral DP 2+ Updated by Rodney Ballesteros RN on 09/11/2016 12:24:21 PM electronically signed on 09/11/2016 12:24:48 PM with status of Final
--- NOTE | 2016-09-11 12:40 | Invasive Diagnostic Lab ---
Name: Joel Muhammad Date of Study: 09/11/2016 Date: 1950 Ht: 175.0 cm /68.9 in Medical Record#: [id number] Age: 66 Wt: 91. 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 The left ventricle is normal and has normal contractility EF 55% Patient had successful PTCA in the RPDA. Recommendations: Optimal medical therapy of patient's disease. Aggressive risk factor modification. History/Risk Factors: Bladder CA with recent resection COPD Cholecystitis Anxiety/Depression Smoker Procedure Access obtained in the right Femoral artery by percutaneous puncture Patient had successful PTCA in the RPDA. Closure Device: Manual Compression Hemodynamics: Pressures Site Systolic/ A Wave Diastolic/ V Wave End Diastolic/ Mean HR AO 109 71 88 59 LV 99 8 8 67 LV 103 14 16 69 AO 109 71 88 69 LV Ventriculography Ejection Method: LV Gram Ejection Fraction: 55% Wall Motion: ELIZONDO Anterobasal Normal Anterolateral Normal Apical: Normal Inferoapical Mild Hypokinesis Inferobasal Normal Coronary Dominance: right Lesion Findings/Interventions * Left Main Coronary Artery There is no left main present due to an anomalous circumflex. * Left Anterior Descending There is a 50% stenosis in the Proximal LAD. There is a 30% stenosis in the Mid LAD. There is a 40% stenosis in the 1st Diagonal. There is a 40% stenosis in the 2nd Diagonal. 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 There is a 30% stenosis in the Proximal Circumflex. * Right Coronary Artery The RCA is diffusely ectatic \T\ aneurysmal. There is a 50% stenosis in the Proximal RCA. There is a 40% stenosis in the Mid RCA. There is a 30% stenosis in the Distal RCA. There is a 10 mm long, 99% stenosis in the Right PDA. The lesion has a AVERY flow of 1 and has thrombus present. An intervention was performed on the Right PDA with a final stenosis of 30%. There were no lesion complications. The final AVERY flow was 3. Interventional Device(s) Vessel Segment Type Name Diameter (mm) Length (mm) Right PDA balloon Emerge Monorail 2 12 Updated by Rodney Ballesteros RN on 09/11/2016 12:24:52 PM Theresa Ward MD, [facility] electronically signed on 09/11/2016 12:35:45 PM with status of Final
[2016-09-11] MEDS ORDERED: *HR* Atropine Sulfate 1 MG/10 ML SYRINGE ONE (14:01)
[2016-09-11] MEDS: Acetaminophen 325 MG TABLET PO PRN (22:07)
[2016-09-11] MEDS: *HR* Morphine 2 MG/ML SYRINGE IVP PRN (22:26)
[2016-09-12 05:17] LABS: Basophils # 0.1 K/mcL (0.0-0.2); Basophils % 0.7 %; Eosinophils % 0.4 %; Hematocrit 41.2 % (37.5-50.1); Hemoglobin 14.2 g/dL (12.9-16.9); Immature Granulocytes % 0.5 % (0-4); Lymphocytes # 1.5 K/mcL (0.6-4.6); Lymphocytes % 20.5 %; Mean Corpuscular HGB Conc 34.5 g/dL (31.6-35.5); Mean Corpuscular Hemoglobin 31.4 pg (28.0-33.3); Mean Corpuscular Volume 91.2 fL (83.0-100.0); Monocytes # 0.6 K/mcL (0.0-1.3); Monocytes % 7.8 %; Neutrophils # 5.3 K/mcL (1.6-8.9); Platelet Count 192 K/mcL (140-400); Red Blood Count 4.52 M/mcL (4.19-5.50); Red Cell Distribution Width 12.8 % (11.5-14.5); Segmented Neutrophils % 70.1 %
[2016-09-12 05:34] LABS: Alanine Aminotransferase 14 Units/L (0-55); Albumin 3.2 g/dL (3.5-5.0); Albumin/Globulin Ratio 1.1 (1.1-2.2); Alkaline Phosphatase 114 Units/L (38-126); Aspartate Amino Transferase 10 Units/L (5-34); BUN/Creatinine Ratio 22 (6-26); Bilirubin,Total 0.5 mg/dL (0.2-1.2); Blood Urea Nitrogen 20 mg/dL (8-26); Calcium 8.6 mg/dL (8.6-10.8); Carbon Dioxide 20 mEq/L (19-29); Chloride 108 mEq/L (98-109); Globulin 2.9 g/dL (2.4-3.5); Glucose 98 mg/dL (70-99); Osmolality,Calculated 287 (280-300); Potassium 4.1 mEq/L (3.5-4.5); Sodium 137 mEq/L (136-145); Total Protein 6.1 g/dL (6.0-8.3); eGFR For African Americans > 60 (> 60); eGFR For Non-African Americans > 60 (> 60)
[2016-09-12] MEDS: Nitroglycerin 0.4 MG TAB.SUBL SL PRN ×2 (06:38→06:47)
[2016-09-12] MEDS: *HR* Morphine 2 MG/ML SYRINGE IVP PRN (06:55)
--- NOTE | 2016-09-12 08:22 | Cardiology Progress Note ---
Date of Encounter: 09/12/16 Time of Encounter: 07:45 Assessment and Plan (1) Non-STEMI (non-ST elevated myocardial infarction) Current Visit: Yes Status: Acute Late presenting MO. C/o chest pain for one week. Troponin 0.26, 0.25, and 0.12. [facility] 09/11/18 realed severe stenosis in his RPDA. He received PTCA to his right PDA. Stenosis was down to 30%. 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 50% stenosis in the proximal LAD, 50% stenosis in the proximal RCA, mild disease otherwise. Continue aspirin, statin, beta rizwan, and Plavix. Importance of DAPT with asa and plavix reviewed with patient and he voiced understanding. TTE pending. Patient continues to have chest discomfort described as a mild midsternal pressure that he experienced prior to his procedure. His chest pain was not relieved after his procedure. He also complained of a severe pain this morning that was relieved with morphine. EKG shows no acute changes. TTE is pending. I will start Imdur. I discussed with Dr. Theresa Ward. Medical management is recommended. No indication for repeat intervention. Recommend that patient ambulate in hallways later this afternoon. If he is pain- free okay to discharge from a cardiology standpoint. If he has recurrent symptoms we would like to continue to monitor. (2) Hypertension Current Visit: Yes Status: Chronic B/p acceptable. Qualifiers: Hypertension type: essential hypertension Qualified Code(s): I10 - Essential (primary) hypertension (3) Bladder cancer Current Visit: Yes Status: Chronic Reports recent diagnosis of bladder cancer status post cystoscopy with biopsies. Awaiting follow-up with oncology. CT scan 12/2015 showed acute cholecystitis without cholelithiasis. Coronary artery disease. A right lower lobe pulmonary nodule. Repeat CT in 3 months recommended to evaluate pulmonary nodule. And a possible bladder tumor. Patient did proceed with cystoscopy with bladder scraping. Qualifiers: Bladder location: unspecified site Qualified Code(s): C67.9 - Malignant neoplasm of bladder, unspecified (4) Smoker Current Visit: Yes Status: Acute Smoking cessation. (5) Cholecystitis Current Visit: Yes Status: Chronic CT in December 2015 showed acute cholecystitis without cholelithiasis. Follow-up ultrasound showed possible chronic cholecystitis. Patient denies recurrent abdominal pain. Cholecystectomy was deferred secondary to bladder cancer at that time. Denies abdominal pain at this time. Discussion w patient/family: The assessment and plan as outlined above was discussed with the patient and/or family members who expressed understanding and agreement. All questions were answered. Thank you for involving us in the care of your patient. Please call with any questions. Subjective Principal diagnosis: NSTEMI Interval history: Mr. Muhammad continues to have a constant pressure across his chest. Pain is similar to what he felt prior to his procedure and was not relieved afterwards. This morning at 6:30 AM he developed a sharp 10 out of 10 nonradiating chest pain in his mid sternum. He was given 2 sublingual nitroglycerin without relief. He was given 2 mg of morphine with relief. His pain is back to baseline. He denies shortness of breath, nausea, vomiting, or diaphoresis. He continues to feel fatigued as he did prior to his procedure. Objective Vital Signs, Last 4 Hours Temp Pulse Resp BP Pulse Ox 09/12/16 07:46 97.8 F 65 20 107/74 09/12/16 07:28 97.4 F L 69 18 111/70 97 09/12/16 07:20 63 20 99 09/12/16 06:49 116/89 09/12/16 06:41 127/85 09/12/16 04:49 97.8 F 62 17 100/74 97 General: Conversant, No Apparent Distress HEENT: Atraumatic, Normocephaly, Mucus Membranes Moist Neck: No JVD, Normal carotid pulses Cardiac: Reg Rate and Rhythm, Normal S1 and S2, No Murmur Lungs: Normal Breath Sounds, No Wheeze, Rales, Rhonchi Neuro: Alert and responsive, No focal deficits noted Abdomen: Soft, Non-Tender Skin: No rashes noted on visualized skin Musculoskeletal: No Chest Wall Tenderness Extremities: No Clubbing, No Cyanosis, No Edema, Normal Pulses Results 09/12/16 04:53 09/12/16 04:53 Lab Results 09/12/16 09/12/16 04:53 04:53 WBC 7.5 Hgb 14.2 Hct 41.2 Plt Count 192 Sodium 137 Potassium 4.1 Chloride 108 Carbon Dioxide 20 BUN 20 Creatinine 0.93 Glucose 98 Calcium 8.6 Total Bilirubin 0.5 AST 10 ALT 14 Alkaline Phosphatase 114 - EKG Interpretation EKG results cardiology: personally reviewed (EKG at 642 this morning shows normal sinus rhythm. There is no acute change from previous EKG. EKG reviewed with Dr. Theresa Ward who agrees with assessment.) - VTE Documentation of Mechanical Device: Graduated compression elastic hosiery Consult Discharge Plan - Plan [facility]: [facility] [Primary Care Provider] -
[2016-09-12] MEDS: Multivit/Ca/Min/Fe/FA 1 TAB TABLET PO SCH (08:27)
[2016-09-12] MEDS: Aspirin 81 MG TAB.CHEW PO SCH (08:28)
[2016-09-12] MEDS: Finasteride 5 MG TABLET PO SCH (08:28)
[2016-09-12] MEDS: Loratadine 10 MG TABLET PO SCH (08:34)
[2016-09-12] MEDS: Isosorbide MONOnitrate (24 HR) 30 MG TAB.ER.24H PO SCH (08:39)
[2016-09-12] MEDS: Tiotropium 18 MCG inhalation IH SCH (08:40)
--- NOTE | 2016-09-12 10:46 | ECHO - Doppler Report ---
Echocardiogram Name: Joel Muhammad Date of Study: 09/12/2016 Date: 1950 Ht: 69.0 in Medical Record#: [id number] Age: 66 Wt: 198.0 lb Gender: Male BSA: 2.06 Order #: [id number] Location: [facility] Room #: 2N06 Reading Physician: Lake Gonzalez MD, [facility] Gardener Florist: Mulu Cleveland RVT, [facility] Ordering Physician: Brenden Castrejon CNP Primary Physician: [facility] Indications: NSTEMI Impressions: Normal left ventricular size and systolic function, LVEF 55%. Mild left ventricular diastolic dysfunction. Normal right ventricular size and function. No significant valvular dysfunction. No evidence of pulmonary hypertension. Left Ventricular Wall Motion: Rest Echo Findings All wall segments showed normal motion. Findings: Study Quality * Technically adequate exam. ECG Findings * Normal sinus rhythm. Left Ventricle * Normal left ventricular size and systolic function, LVEF 55%. * Normal LV wall thickness. * Mild left ventricular diastolic dysfunction. Right Ventricle * Normal right ventricular size and function. Left Atrium * Normal left atrial size. Right Atrium * Normal right atrial size. Aorta * Normally sized aortic root. Pericardium * There is no pericardial effusion present. IVC * Normal IVC dimensions and inspiratory collapse. Aortic Valve * Aortic valve not well visualized. * No aortic stenosis. * No aortic regurgitation. Mitral Valve * Mildly thickened mitral valve leaflets. * No mitral stenosis. * Trace mitral regurgitation. Tricuspid Valve * Normal tricuspid valve structure. * No tricuspid stenosis. * Trace tricuspid regurgitation. * No evidence of pulmonary hypertension. Pulmonic Valve * Pulmonic valve not well visualized. * No pulmonic stenosis. * No pulmonic regurgitation. History Hypertension Hypercholesteremia History of Smoking Years 50 Packs 1 Family History of CAD History of CAD/PTCA Myocardial Infarction Measurements: BP: 107/ 74 2D Normal Values RVIDd: 3.30 cm IVSd: 1.00 cm 0.6 - 1.0 cm LVIDd: 4.80 cm 3.7 - 5.6 cm LVPWd: 1.00 cm 0.6 - 1.1 cm LVIDs: 3.50 cm 1.5 - 3.6 cm AO: 3.40 cm < 4.0 cm %FS: 27.10 cm >25 % LA volume: 48 Mitral Valve Peak E:.50 m/sec Peak A:.70 m/sec E/A Ratio:0.7 Tricuspid Valve TV Regurg Peak Grad: 18.00mmHg TV Regurg Peak Zeb: 2.14m/sec Updated by Lake Gonzalez MD, [facility] on 09/12/2016 10:38:03 AM electronically signed on 09/12/2016 10:39:16 AM with status of Final Wall Motion Rodriguez: 1=Normal, 2=Hypokinesis, 3=Akinesis, 4=Dyskinesis, 5=Aneurysmal, 6=Hyperkinetic, X=Not Visualized (Blank)=Missing
--- NOTE | 2016-09-12 12:19 | Internal Med Progress Note ---
Date of Encounter: 09/12/16 Time of Encounter: 12:00 - Assessment and plan (1) Chronic cholecystitis Current Visit: Yes Status: Acute Assessment and plan: Discussed with surgery team. They will come to evaluate the patient. Will order HIDA scan. Repeat liver function tests, amylase lipase Code(s): K81.1 - Chronic cholecystitis SNOMED Code(s): 53223562 (2) Dyslipidemia Current Visit: Yes Status: Acute Code(s): E78.5 - Hyperlipidemia, unspecified SNOMED Code(s): 657086163 (3) Gastritis Current Visit: Yes Status: Acute Assessment and plan: Add Carafate and Protonix close monitoring for any improvement Qualifiers: Gastritis type: unspecified gastritis Chronicity: unspecified Gastritis bleeding: without bleeding Qualified Code(s): K29.70 - Gastritis, unspecified , without bleeding Code(s): K29.70 - Gastritis, unspecified, without bleeding SNOMED Code(s): 9651024 (4) Elevated troponin Current Visit: Yes Status: Acute Assessment and plan: Cardiac catheter was done by cardiology team, continue medical management, cardiac echo refused Code(s): R79.89 - Other specified abnormal findings of blood chemistry SNOMED Code(s): 992455663, 554774714 - Subjective Interval history: Patient stated that he had a recurrent episode of pressure-like sensation in the epigastric area, had episode last night was 10 out of 10 in severity relieved with morphine. Patient stated he had another episode this morning was 7 out of 10 in severity improved with taking morphine. Patient is taking Imdur and nitroglycerin did not help with this episode. Patient stated this is similar to his episode of Gall bladder pain he had in the past. Patient denies any gastroesophageal reflux disease like symptoms. Patient denies any blood in stool or black stool. - Constitutional Vitals: Temp Pulse Resp BP Pulse Ox 97.8 F 67 18 107/74 96 09/12/16 07:46 09/12/16 11:37 09/12/16 08:40 09/12/16 07:46 09/12/16 11:37 General appearance: Present: cooperative, A&O X 3, no acute distress - Head Head exam: Present: atraumatic, normocephalic - Neck Neck exam general surgery: Present: supple, trachea midline. Absent: lymphadenopathy - Respiratory Respiratory exam: Present: CTAB. Absent: accessory muscle use, rales, rhonchi, wheezes - Cardiovascular Cardiovascular exam: Present: RRR, +S1, +S2. Absent: diastolic murmur, gallop, rubs, systolic murmur - GI/Abdominal GI/Abdominal exam: Present: normal bowel sounds, soft, no peritoneal signs. Absent: distended, tenderness - Extremities Exam Extremities exam: Present: warm, radial pulses palpable and symetrical. Absent : calf tenderness, cyanotic, pedal edema - Skin Skin exam: Present: dry, intact Internal Medicine: Result - Labs CBC & Chem 7: 09/12/16 04:53 09/12/16 04:53 Labs: Short CBC 09/12/16 Range/Units 04:53 WBC 7.5 (4.3-11.1) K/mcL Hgb 14.2 (12.9-16.9) g/dL Hct 41.2 (37.5-50.1) % Plt Count 192 (140-400) K/mcL Neutrophils # 5.3 (1.6-8.9) K/mcL BMP 09/12/16 04:53 Sodium 137 Potassium 4.1 Chloride 108 Carbon Dioxide 20 BUN 20 Creatinine 0.93 Glucose 98 Calcium 8.6 Liver Function 09/12/16 Range/Units 04:53 Total Bilirubin 0.5 (0.2-1.2) mg/dL AST 10 (5-34) Units/L ALT 14 (0-55) Units/L Alkaline Phosphatase 114 (38-126) Units/L Albumin 3.2 L (3.5-5.0) g/dL - ABG Interpretation ABG results: PT/INR, D-dimer PT 12.8 Seconds (9.4-12.1) H 09/10/16 18:58 - VTE Documentation of Mechanical Device: Graduated compression elastic hosiery Consult Discharge Plan - Plan [facility]errals: [facility] [Primary Care Provider] -
--- NOTE | 2016-09-12 14:38 | General Surgery Consult Note ---
<Omer Siu - Last Filed: 09/13/16 07:35> Date of Encounter: 09/12/16 Time of Encounter: 14:15 Assessment and Plan (1) Chronic cholecystitis Status: Acute CT 01/12/16 suggested acute cholecystitis without cholelithiasis. Gallbladder US 01/12/16: mild circumferential gallbladder wall thickening. Possible chronic cholecystitis. Consider HIDA scan. Discussed with Dr. Cameron. Pending HIDA scan. Start Carafate (2) Non-STEMI (non-ST elevated myocardial infarction) Status: Acute LHC 09/11/18 realed severe stenosis in his RPDA. He received PTCA to his right PDA. Stenosis was down to 30%. 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 50% stenosis in the proximal LAD, 50% stenosis in the proximal RCA, mild disease otherwise. Managed by medicine and cardiology services. (3) Bladder cancer Status: Chronic Reports recent diagnosis of bladder cancer status post cystoscopy with biopsies. Awaiting follow-up with oncology. Qualifiers: Bladder location: unspecified site Qualified Code(s): C67.9 - Malignant neoplasm of bladder, unspecified (4) Dyslipidemia Status: Acute Patient started on Statin. Managed by medicine service. (5) Hypertension Status: Chronic Normotensive Management per medicine service. Qualifiers: Hypertension type: essential hypertension Qualified Code(s): I10 - Essential (primary) hypertension (6) Tobacco abuse Status: Chronic History of Present Illness Consult date: 09/12/16 Reason for consult: other (chronic cholecystitis) Requesting physician: Mary Carreno History of present illness: Mr. Muhammad is a 66 year old male that presented to the ED for chest pain x 5 days. Patient was found to have a NSTEMI for which he underwent LHC on 09/11/16 revealing severe stenosis in his RPDA. He received PTCA to his right PDA. Though patient states the left precordial pain(which he contributed to his OK) has resolved, he has since had a recurrent midsternal pain that at times is a 10 /10 in severity and with an episode hits the pain radiates outward from his midsternum. Patient states he has had similar episodes 4-5 times in the past, most recently in December when he was inpatient. Patient denies any nausea,vomiting, shortness of breath, abdominal pain, GERD, melena or BRBPR. States nothing seems to trigger the episodes, nothing makes them worse. The pain medications given while inpatient did seem to improve pain. Patient states last BM was yesterday. Past Med Surg Social Fam HX - Past Medical History Source: patient Medical history: cancer (bladder cancer s/p resection), COPD, coronary artery disease, hyperlipidemia, myocardial infarction Psychiatric history: anxiety, depression - Past Surgical History Surgical History: cancer surgery (Bladder tumor resectin) - Social History Smoking Status: Current every day smoker (48 pack year history) Smokeless Tobacco Status: No Alcohol use: occasionally Drug use: none - Family History Mother Living Status: Age at : 63 Cause of : brain aneurysm Father Living Status: Age at : 53 Cause of : OK Medications and Allergies Albuterol Sulfate [Albuterol Inhaler] 2 puff IH Q4H PRN 09/10/16 [History] Finasteride [Proscar] 5 mg PO DAILY 09/10/16 [History] Loratadine [Claritin] 10 mg PO DAILY 09/10/16 [History] Multivitamin [Multi-Day Vitamins] 1 each PO DAILY 09/10/16 [History] Oxybutynin Chloride [Ditropan Xl] 15 mg PO DAILY 09/10/16 [History] Tamsulosin [Flomax] 0.4 mg PO DAILY 09/10/16 [History] Tiotropium [Spiriva] 18 mcg IH DAILY 09/10/16 [History] Acetaminophen [Tylenol] 650 mg PO Q6HR PRN #40 tablet 09/13/16 [Rx] Aspirin 81 mg PO DAILY #90 tab.chew 09/13/16 [Rx] Atorvastatin [Lipitor] 80 mg PO HS #30 tablet 09/13/16 [Rx] Clopidogrel [Plavix] 75 mg PO DAILY #30 tablet 09/13/16 [Rx] Isosorbide MONOnitrate (24 HR) [Imdur] 30 mg PO DAILY #30 tab.er.24h 09/13/16 [ Rx] Metoprolol [Lopressor] 12.5 mg PO BID #60 tablet 09/13/16 [Rx] Nitroglycerin 0.4 mg SL Q5MIN PRN #25 tab.subl 09/13/16 [Rx] Omeprazole [PriLOSEC] 20 mg PO BIDAC #60 capsule. 09/13/16 [Rx] Sucralfate [Carafate] 1 gm PO QIDAC #40 tablet 09/13/16 [Rx] Allergies No Known Allergies Allergy (Verified 01/12/16 04:55) Review of Systems All systems PM: A 10-system review of systems was performed and is negative for pertinent findings except as documented above in the HPI. - Constitutional no chills, no fever(s) - EENT Nose, mouth and throat: no dizziness, no dysphagia - Cardiovascular chest pain, chest pain with activity, no dyspnea - Respiratory cough, no dyspnea - Gastrointestinal no abdominal pain, no cramping, no diarrhea, no hematochezia, no melena, no nausea, no vomiting - Genitourinary no dysuria, no flank pain, no hematuria - Musculoskeletal no abnormal gait - Neurological no confusion, no dizziness General Surgery Exam Initial Vital Signs Temp Pulse Resp BP Pulse Ox 97.9 F 84 22 140/98 98 09/10/16 15:20 09/10/16 15:20 09/10/16 15:20 09/10/16 15:20 09/10/16 15:20 - General physical appearance well developed, well nourished, no distress - Eyes normal ocular movement - ENT normal mucosa, atraumatic, normocephalic - Neck trachea midline - Respiratory normal respiratory effort, clear to auscultation - Cardiovascular Cardiovascular exam: Present: RRR - Abdomen Abdomen general surgery: Present: bowel sounds present, soft, non tender - Integumentary Integumentary general surgery: Present: warm and dry, no abnormal pigmentation - Neurologic Present: CN 2-12 grossly intact - Musculoskeletal Present: normal posture - Psychiatric Psychiatric general surgery: Present: A&Ox3, speech is normal, memory intact Exam Initial Vital Signs Temp Pulse Resp BP Pulse Ox 97.9 F 84 22 140/98 98 09/10/16 15:20 09/10/16 15:20 09/10/16 15:20 09/10/16 15:20 09/10/16 15:20 Results - Labs 09/12/16 04:53 09/12/16 04:53 Abnormal lab results PT 12.8 Seconds (9.4-12.1) H 09/10/16 18:58 APTT 58.1 Seconds (26.0-36.0) H D 09/11/16 03:30 Troponin I 0.26 ng/mL (0-0.03) H* 09/11/16 05:35 Albumin 3.2 g/dL (3.5-5.0) L 09/12/16 04:53 Cholesterol 213 mg/dL (< 200) H 09/11/16 03:30 LDL Cholesterol, Calc 155 mg/dL (0-99) H 09/11/16 03:30 HDL Cholesterol 33 mg/dL (40-59) L 09/11/16 03:30 Cholesterol/HDL Ratio 6.5 (0-4.9) H 09/11/16 03:30 Diabetes panel 09/12/16 Range/Units 04:53 Sodium 137 (136-145) mEq/L Potassium 4.1 (3.5-4.5) mEq/L Chloride 108 (98-109) mEq/L Carbon Dioxide 20 (19-29) mEq/L BUN 20 (8-26) mg/dL Creatinine 0.93 (0.72-1.25) mg/dL Glucose 98 (70-99) mg/dL Calcium 8.6 (8.6-10.8) mg/dL AST 10 (5-34) Units/L ALT 14 (0-55) Units/L Alkaline Phosphatase 114 (38-126) Units/L Albumin 3.2 L (3.5-5.0) g/dL Calcium panel 09/12/16 Range/Units 04:53 Calcium 8.6 (8.6-10.8) mg/dL Albumin 3.2 L (3.5-5.0) g/dL Pituitary panel 09/12/16 Range/Units 04:53 Sodium 137 (136-145) mEq/L Potassium 4.1 (3.5-4.5) mEq/L Chloride 108 (98-109) mEq/L Carbon Dioxide 20 (19-29) mEq/L BUN 20 (8-26) mg/dL Creatinine 0.93 (0.72-1.25) mg/dL Glucose 98 (70-99) mg/dL Calcium 8.6 (8.6-10.8) mg/dL Adrenal panel 09/12/16 Range/Units 04:53 Sodium 137 (136-145) mEq/L Potassium 4.1 (3.5-4.5) mEq/L Chloride 108 (98-109) mEq/L Carbon Dioxide 20 (19-29) mEq/L BUN 20 (8-26) mg/dL Creatinine 0.93 (0.72-1.25) mg/dL Glucose 98 (70-99) mg/dL Calcium 8.6 (8.6-10.8) mg/dL Total Bilirubin 0.5 (0.2-1.2) mg/dL AST 10 (5-34) Units/L ALT 14 (0-55) Units/L Alkaline Phosphatase 114 (38-126) Units/L Albumin 3.2 L (3.5-5.0) g/dL All other labs normal. Consult Discharge Plan - Plan Instructions: Coronary Angioplasty (DC) Additional Instructions: RISK FACTORS: STOP SMOKING: If you smoke, STOP. Smoking or tobacco use significantly increases your risk of heart disease because nicotine causes the arteries to narrow or constrict. It also causes fats to stick to the artery. Your chances of having a heart attack are greatly increased if you continue to smoke. For more information, call the education line for smoking cessation 9-610-FOGIVGF EAT A LOW FAT/CHOLESTEROL/SODIUM DIET: This diet may help reduce your chances of having a heart attack. LIFTING: Avoid lifting anything more than 10 pounds for 5-7 days Prior to straining, laughing, sneezing and/or coughing, apply manual pressure directly over insertion site. ACTIVITY: You may walk or climb stairs as tolerated You can resume sexual activity as tolerated In general, you are encouraged to engage in a minimum of 30 minutes or more of moderate intensity physical activity, such as brisk walking, daily or at least 3 -4 times weekly BATHING Do not submerge the site into water (bath tub, hot tub, swimming pool) for 1 week. This can be a source for infection into the blood stream. You may shower after 24 hours SITE CARE: After 24 hours, you may remove the dressing and leave the site open to air. Keep the site clean and dry. Clean gently and pat dry. You can expect bruising and tenderness that gradually resolve within a week or two. Return to work as instructed per your physician Resume driving Tuesday09/18/16 Keep all scheduled follow up appointments Resume medications as instructed IMPORTANT: If prescribed a Platelet Aggregation Inhibitor such as, Plavix, Brilinta or Effient: Duration of therapy is minimum one year These medications are often used in combination with Aspirin in prevention of future heart attacks Never discontinue unless consult with your Riveter STROKE (CVA) Risk factors for a stroke are: Age, cigarette smoking, diabetes, excessive alcohol consumption, family history, high blood pressure, overweight, physical inactivity, prior stroke, heart attack, diagnosis of carotid artery stenosis or other artery disease. Warning signs: Sudden numbness or weakness of the face, arm or leg; especially on one side of the body, sudden confusion, trouble speaking or understanding, sudden trouble seeing in one or both eyes, sudden trouble walking, dizziness, loss of balance or coordination, sudden severe headache with no cause. Call 911 or go to the Emergency Room. CONGESTIVE HEART FAILURE: If you have been diagnosed with Congestive Heart Failure (CHF) and your symptoms return, make an appointment with your physician Weigh yourself daily. Notify your physician if you have a weight gain of two or more pounds in one day or five or more pounds in one week. If you experience any difficulty breathing, please call 911 BLEEDING: Although the risk of bleeding is minimal, it can happen. If you have any bleeding from the site, apply firm pressure above the puncture site for 10-15 minutes. If the bleeding does not stop, continue manual pressure and call 911 Contact your physician if: You develop a fever greater than 101 degrees Fahrenheit Your site becomes reddened or has any drainage You have an increase in pain or burning at the site or if a large knot forms at the site. If you experience chest pain, shortness of breath, dizziness, or extreme tiredness, stop the activity and rest. Please notify your physicians office if you experience any of these symptoms and they are not relieved by rest please call 911! Referrals: Brenden Castrejon SENIOR MOBILE WEB DEVELOPER [Advanced Practice Nurse] - (THE OFFICE WILL CALL WITH FOLLOW UP APPOINTMENT) [place],PCP [Primary Care Provider] - 09/13/16 1:30 pm (Follow-up with cardiology in 1 week) Prescriptions: Nitroglycerin 0.4 mg SL Q5MIN PRN #25 tab.subl PRN Reason: Chest Pain Acetaminophen [Tylenol] 650 mg PO Q6HR PRN #40 tablet PRN Reason: Mild Pain Aspirin 81 mg PO DAILY #90 tab.chew Atorvastatin [Lipitor] 80 mg PO HS #30 tablet Clopidogrel [Plavix] 75 mg PO DAILY #30 tablet Isosorbide MONOnitrate (24 HR) [Imdur] 30 mg PO DAILY #30 tab.er.24h Metoprolol [Lopressor] 12.5 mg PO BID #60 tablet Omeprazole [PriLOSEC] 20 mg PO BIDAC #60 capsule. Sucralfate [Carafate] 1 gm PO QIDAC #40 tablet <Corinne Cameron - Last Filed: 09/14/16 12:12> Past Med Surg Social Fam HX - Past Medical History Medical history: coronary artery disease (NSTEMI) - Past Surgical History Surgical History: other (cardiac stents) Review of Systems All systems PM: A 10-system review of systems was performed and is negative for pertinent findings except as documented above in the HPI. General Surgery Exam Initial Vital Signs Temp Pulse Resp BP Pulse Ox 97.9 F 84 22 140/98 98 09/10/16 15:20 09/10/16 15:20 09/10/16 15:20 09/10/16 15:20 09/10/16 15:20 Exam Initial Vital Signs Temp Pulse Resp BP Pulse Ox 97.9 F 84 22 140/98 98 09/10/16 15:20 09/10/16 15:20 09/10/16 15:20 09/10/16 15:20 09/10/16 15:20 Results - Labs 09/12/16 04:53 09/12/16 04:53 Abnormal lab results PT 12.8 Seconds (9.4-12.1) H 09/10/16 18:58 APTT 58.1 Seconds (26.0-36.0) H D 09/11/16 03:30 Troponin I 0.26 ng/mL (0-0.03) H* 09/11/16 05:35 Albumin 3.2 g/dL (3.5-5.0) L 09/12/16 04:53 Cholesterol 213 mg/dL (< 200) H 09/11/16 03:30 LDL Cholesterol, Calc 155 mg/dL (0-99) H 09/11/16 03:30 HDL Cholesterol 33 mg/dL (40-59) L 09/11/16 03:30 Cholesterol/HDL Ratio 6.5 (0-4.9) H 09/11/16 03:30 All other labs normal. - Attending Attestation No charge for consult pt was discharged before I had a chance to see him. Unfortunately he is not an operative candidate given his recent NSTEMI and stent placement His only option at this point to manage pain if it truly is his gallbladder is a percutaneous cholecystostomy tube but that is really a temporizing measure although I have had patients that have been able to avoid surgery with this measure.
[2016-09-12] MEDS: Sucralfate 1 GM TABLET PO SCH ×2 (16:53→21:49)
--- NOTE | 2016-09-12 22:26 | Electrocardiograph Report ---
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
--- NOTE | 2016-09-12 22:43 | Electrocardiograph Report ---
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
--- NOTE | 2016-09-12 23:25 | Electrocardiograph Report ---
[facility] Test Date: 2016-09-11 Pat Name: NICK OBREGON Department: 111 Room: 2N06 Gender: M Intraoperative Neuro Tech: [id number] : 1950 Requested By: Norman Davila Order Number: [id number] Reading MD: Lake Gonzalez MD Measurements Intervals [place] Rate: 64 P: 30 [place]: 174 QRS: 22 QRSD: 106 T: 55 QT: 381 QTc: 390 Interpretive Statements SINUS RHYTHM POSSIBLE INFERIOR MYOCARDIAL INFARCTION, OF INDETERMINATE AGE Electronically Signed On 09-12-16 23:24:52 EST by Lake Gonzalez MD
[2016-09-13 08:13] VITALS: BP 140/80
[2016-09-13] MEDS: Multivit/Ca/Min/Fe/FA 1 TAB TABLET PO SCH (08:25)
[2016-09-13] MEDS: Finasteride 5 MG TABLET PO SCH (08:25)
[2016-09-13] MEDS: Isosorbide MONOnitrate (24 HR) 30 MG TAB.ER.24H PO SCH (08:25)
[2016-09-13] MEDS: Aspirin 81 MG TAB.CHEW PO SCH (08:25)
[2016-09-13] MEDS: Loratadine 10 MG TABLET PO SCH (08:25)
[2016-09-13] MEDS: Sucralfate 1 GM TABLET PO SCH ×2 (08:26→11:38)
[2016-09-13] MEDS: Acetaminophen 325 MG TABLET PO PRN (08:28)
--- NOTE | 2016-09-13 09:25 | Cardiology Progress Note ---
Date of Encounter: 09/13/16 Time of Encounter: 09:23 Assessment and Plan (1) Non-STEMI (non-ST elevated myocardial infarction) Current Visit: Yes Status: Acute Late presenting [place]. C/o chest pain for one week. Troponin 0.26, 0.25, and 0.12. [facility] 09/11/18 realed severe stenosis in his RPDA. He received PTCA to his right PDA. Stenosis was down to 30%. 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 50% stenosis in the proximal LAD, 50% stenosis in the proximal RCA, mild disease otherwise. Continue aspirin, statin, beta rizwan, and Plavix. Importance of DAPT with asa and plavix reviewed with patient and he voiced understanding. TTE pending. Tolerating imdur. Denies recurrent chest pain. Ok to be d/c'd from cardiology standpoint. F/u in 7-10 days will be scheduled. No driving for one week. No heavy lifting over 10 lbs. No tub baths for one week. He will need to be off work until after f/u. Cardiac rehab in the out pt setting. (2) Hypertension Current Visit: Yes Status: Chronic B/p acceptable. Qualifiers: Hypertension type: essential hypertension Qualified Code(s): I10 - Essential (primary) hypertension (3) Bladder cancer Current Visit: Yes Status: Chronic Reports recent diagnosis of bladder cancer status post cystoscopy with biopsies. Awaiting follow-up with oncology. CT scan 12/2015 showed acute cholecystitis without cholelithiasis. Coronary artery disease. A right lower lobe pulmonary nodule. Repeat CT in 3 months recommended to evaluate pulmonary nodule. And a possible bladder tumor. Patient did proceed with cystoscopy with bladder scraping. Qualifiers: Bladder location: unspecified site Qualified Code(s): C67.9 - Malignant neoplasm of bladder, unspecified (4) Smoker Current Visit: Yes Status: Acute Smoking cessation. (5) Cholecystitis Current Visit: Yes Status: Chronic CT in December 2015 showed acute cholecystitis without cholelithiasis. Follow-up ultrasound showed possible chronic cholecystitis. Patient denies recurrent abdominal pain. Cholecystectomy was deferred secondary to bladder cancer at that time. Denies abdominal pain at this time. Surgery following. Discussion w patient/family: The assessment and plan as outlined above was discussed with the patient and/or family members who expressed understanding and agreement. All questions were answered. Thank you for involving us in the care of your patient. Please call with any questions. Subjective Principal diagnosis: NSTEMI Interval history: Mr. Muhammad denies recurrent chest pain since yesterday morning. He denies SOB. He underwent hida scan this morning. Objective Vital Signs, Last 4 Hours Temp Pulse Resp BP Pulse Ox 09/13/16 08:30 75 09/13/16 08:10 97.5 F L 71 18 140/80 96 General: Conversant, No Apparent Distress HEENT: Atraumatic, Normocephaly, Mucus Membranes Moist Neck: No JVD, Normal carotid pulses Cardiac: Reg Rate and Rhythm, Normal S1 and S2, No Murmur Lungs: Normal Breath Sounds, No Wheeze, Rales, Rhonchi Neuro: Alert and responsive, No focal deficits noted Abdomen: Soft, Non-Tender Skin: No rashes noted on visualized skin Musculoskeletal: No Chest Wall Tenderness Extremities: No Clubbing, No Cyanosis, No Edema, Normal Pulses, Other (Right groin soft to palpation. ) Results 09/12/16 04:53 09/12/16 04:53 - Imaging and Cardiology Echo: report reviewed - EKG Interpretation EKG results cardiology: other (Telemetry shows NSR. no concerning arrythmias seen.) - VTE Documentation of Mechanical Device: Graduated compression elastic hosiery Consult Discharge Plan - Plan Referrals: [facility] [Primary Care Provider[facility] -
[2016-09-13] MEDS: Tiotropium 18 MCG inhalation IH SCH (10:50)
--- NOTE | 2016-09-13 11:03 | Discharge Summary ---
Date of Encounter: 09/13/16 Time of Encounter: 11:01 - Discharge Diagnosis (1) Dyslipidemia Priority: Secondary Status: Acute Code(s): E78.5 - Hyperlipidemia, unspecified SNOMED Code(s): 656885021 (2) Gastritis Priority: Primary Status: Acute Comments: Based on HIDA scan and possible gastroesophageal reflux disease counseling patient about medication compliance Protonix Qualifiers: Gastritis type: unspecified gastritis Chronicity: unspecified Gastritis bleeding: without bleeding Qualified Code(s): K29.70 - Gastritis, unspecified , without bleeding Code(s): K29.70 - Gastritis, unspecified, without bleeding SNOMED Code(s): 0792431 (3) Non-STEMI (non-ST elevated myocardial infarction) Priority: Primary Status: Acute (4) Abdominal pain Priority: Secondary Status: Acute Qualifiers: Abdominal location: epigastric Qualified Code(s): R10.13 - Epigastric pain - Discharge Medications Prescriptions: Nitroglycerin 0.4 mg SL Q5MIN PRN #25 tab.subl PRN Reason: Chest Pain Acetaminophen [Tylenol] 650 mg PO Q6HR PRN #40 tablet PRN Reason: Mild Pain Aspirin 81 mg PO DAILY #90 tab.chew Atorvastatin [Lipitor] 80 mg PO HS #30 tablet Clopidogrel [Plavix] 75 mg PO DAILY #30 tablet Isosorbide MONOnitrate (24 HR) [Imdur] 30 mg PO DAILY #30 tab.er.24h Metoprolol [Lopressor] 12.5 mg PO BID #60 tablet Omeprazole [PriLOSEC] 20 mg PO BIDAC #60 capsule. Sucralfate [Carafate] 1 gm PO QIDAC #40 tablet Home Medications: Albuterol Sulfate [Albuterol Inhaler] 2 puff IH Q4H PRN 09/10/16 [History] Finasteride [Proscar] 5 mg PO DAILY 09/10/16 [History] Loratadine [Claritin] 10 mg PO DAILY 09/10/16 [History] Multivitamin [Multi-Day Vitamins] 1 each PO DAILY 09/10/16 [History] Oxybutynin Chloride [Ditropan Xl] 15 mg PO DAILY 09/10/16 [History] Tamsulosin [Flomax] 0.4 mg PO DAILY 09/10/16 [History] Tiotropium [Spiriva] 18 mcg IH DAILY 09/10/16 [History] Acetaminophen [Tylenol] 650 mg PO Q6HR PRN #40 tablet 09/13/16 [Rx] Aspirin 81 mg PO DAILY #90 tab.chew 09/13/16 [Rx] Atorvastatin [Lipitor] 80 mg PO HS #30 tablet 09/13/16 [Rx] Clopidogrel [Plavix] 75 mg PO DAILY #30 tablet 09/13/16 [Rx] Isosorbide MONOnitrate (24 HR) [Imdur] 30 mg PO DAILY #30 tab.er.24h 09/13/16 [ Rx] Metoprolol [Lopressor] 12.5 mg PO BID #60 tablet 09/13/16 [Rx] Nitroglycerin 0.4 mg SL Q5MIN PRN #25 tab.subl 09/13/16 [Rx] Omeprazole [PriLOSEC] 20 mg PO BIDAC #60 capsule.dr 09/13/16 [Rx] Sucralfate [Carafate] 1 gm PO QIDAC #40 tablet 09/13/16 [Rx] Allergies/Adverse Reactions: Allergies No Known Allergies Allergy (Verified 01/12/16 04:55) Procedures/tests Complete & Pending: Procedures Performed prior 72 hours Category Date Time Status CL Cardiac Catheterization [CL] Routine [place] On 09/11/16 08:52 Completed NM hepatobiliary w drug [NM] Routine Exams 09/13/16 12:47 Completed ECG 12 lead ECG [ECG] Routine Y 09/10/16 15:20 Completed ECG 12 lead ECG [ECG] Routine Y 09/11/16 00:11 Completed ECG 12 lead ECG [ECG] Stat Y 09/11/16 12:26 Completed ECG 12 lead ECG [ECG] Stat Y 09/12/16 07:45 Ordered EKG [ECG 12 lead ECG] [ECG] Stat Y 09/10/16 18:14 Completed EV echocardiogram Routine Y 09/12/16 08:52 Completed Date of admission: 09/10/16 16:26 [facility] care physician[facility] Consults: 09/10/16 18:35 Consult to Cardiology [CONS] Routine Comment: Consulting Provider: [facility] Reason for Consult: exertional chest pain, increasing troponin Call Completed: Yes 09/11/16 12:27 Consult to Cardiac Rehabilitation-Phase1 [CONS] Routine Comment: Reason for Consult: post op cath Call Completed: Yes 09/12/16 12:26 Consult to Surgery [CONS] Routine Consulting Provider: [facility] Reason for Consult: Recurrent abdominal pain, chronic cholecystitis Call Completed: Yes Discharging clinician: Mary Carreno - Patient Status Disposition: Home, Self-Care Condition: Good Functional capacity at discharge: independent ambulation Overall status at discharge: patient is progressing back to baseline - Discharge Instructions Instructions: Coronary Angioplasty (DC) Follow Up With: Brenden Castrejon [employer] [Advanced Practice Nurse] - (THE OFFICE WILL CALL WITH FOLLOW UP APPOINTMENT) [facility] [Primary Care Provider] - 09/13/16 1:30 pm (Follow-up with cardiology in 1 week) Additional Instructions: RISK FACTORS: STOP SMOKING: If you smoke, STOP. Smoking or tobacco use significantly increases your risk of heart disease because nicotine causes the arteries to narrow or constrict. It also causes fats to stick to the artery. Your chances of having a heart attack are greatly increased if you continue to smoke. For more information, call the education line for smoking cessation 9-767-IBJRGER EAT A LOW FAT/CHOLESTEROL/SODIUM DIET: This diet may help reduce your chances of having a heart attack. LIFTING: Avoid lifting anything more than 10 pounds for 5-7 days Prior to straining, laughing, sneezing and/or coughing, apply manual pressure directly over insertion site. ACTIVITY: You may walk or climb stairs as tolerated You can resume sexual activity as tolerated In general, you are encouraged to engage in a minimum of 30 minutes or more of moderate intensity physical activity, such as brisk walking, daily or at least 3 -4 times weekly BATHING Do not submerge the site into water (bath tub, hot tub, swimming pool) for 1 week. This can be a source for infection into the blood stream. You may shower after 24 hours SITE CARE: After 24 hours, you may remove the dressing and leave the site open to air. Keep the site clean and dry. Clean gently and pat dry. You can expect bruising and tenderness that gradually resolve within a week or two. Return to work as instructed per your physician Resume driving Tuesday09/18/16 Keep all scheduled follow up appointments Resume medications as instructed IMPORTANT: If prescribed a Platelet Aggregation Inhibitor such as, Plavix, Brilinta or Effient: Duration of therapy is minimum one year These medications are often used in combination with Aspirin in prevention of future heart attacks Never discontinue unless consult with your Speech Language Specialist STROKE (CVA) Risk factors for a stroke are: Age, cigarette smoking, diabetes, excessive alcohol consumption, family history, high blood pressure, overweight, physical inactivity, prior stroke, heart attack, diagnosis of carotid artery stenosis or other artery disease. Warning signs: Sudden numbness or weakness of the face, arm or leg; especially on one side of the body, sudden confusion, trouble speaking or understanding, sudden trouble seeing in one or both eyes, sudden trouble walking, dizziness, loss of balance or coordination, sudden severe headache with no cause. Call 911 or go to the Emergency Room. CONGESTIVE HEART FAILURE: If you have been diagnosed with Congestive Heart Failure (CHF) and your symptoms return, make an appointment with your physician Weigh yourself daily. Notify your physician if you have a weight gain of two or more pounds in one day or five or more pounds in one week. If you experience any difficulty breathing, please call 911 BLEEDING: Although the risk of bleeding is minimal, it can happen. If you have any bleeding from the site, apply firm pressure above the puncture site for 10-15 minutes. If the bleeding does not stop, continue manual pressure and call 911 Contact your physician if: You develop a fever greater than 101 degrees Fahrenheit Your site becomes reddened or has any drainage You have an increase in pain or burning at the site or if a large knot forms at the site. If you experience chest pain, shortness of breath, dizziness, or extreme tiredness, stop the activity and rest. Please notify your physicians office if you experience any of these symptoms and they are not relieved by rest please call 911! - Diet and Activity Activity: increase activity as tolerated, resume usual activities as tolerated Diet: low fat, low cholesterol, low salt diet Hospital course: Mr. Muhammad is a 66 year old male with past medical history of coronary artery disease came to the hospital , He was complaining of intermittent episode of midsternal chest pain with exertion associated with shortness of breath nausea and dizziness. Cardiac enzymes show troponin 0.2 6 .2 5 .16 EKG normal sinus distress met with possible old inferior AR ,echocardiogram EF was 55% no significant valvular disease. Patient had cardiac catheter done on 09/11/18 revealed severe stenosis in his RPDA. He received PTCA to his right PDA. Stenosis was down to 30%. 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 50% stenosis in the proximal LAD, 50% stenosis in the proximal RCA, medication adjusted by cardiology team. Aspirin ,Plavix ,beta rizwan and statin. Patient continued to have epigastric pain after surgery with his history of chronic cholecystitis finding on CAT scan and ultrasound. HIDA scan was ordered which was negative. Patient was placed on Protonix and Carafate. His symptom resolved completely. I had long discussion with patient counseling to avoid any Viagra especially was taking nitroglycerin and Imdur. Patient will be seen by cardiology for further evaluation . - Time Spent with Patient Total time spent providing and/or coordinating discharge services: Greater than 30 minutes - Constitutional Vitals: Temp Pulse Resp BP Pulse Ox 97.5 F L 75 18 140/80 96 09/13/16 08:10 09/13/16 08:30 09/13/16 10:52 09/13/16 08:10 09/13/16 10:52 General appearance: Present: cooperative, A&O X 3, no acute distress - Eye Eye exam: Present: conjuntiva pink, sclera anicteric - Respiratory Respiratory exam: Present: CTAB. Absent: accessory muscle use, rales, rhonchi, wheezes - Cardiovascular Cardiovascular exam: Present: RRR, +S1, +S2. Absent: diastolic murmur, gallop, rubs, systolic murmur - GI/Abdominal GI/Abdominal exam: Present: normal bowel sounds, soft, no peritoneal signs. Absent: distended, tenderness - Extremities Exam Extremities exam: Present: warm, radial pulses palpable and symetrical. Absent : calf tenderness, cyanotic, pedal edema - Skin Skin exam: Present: dry, intact - VTE Documentation of Mechanical Device: Graduated compression elastic hosiery
--- NOTE | 2016-09-13 11:17 | Electrocardiograph Report ---
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
--- NOTE | 2016-09-13 15:59 | Electrocardiograph Report ---
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
--- NOTE | 2016-09-13 15:59 | Electrocardiograph Report ---
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
== END 2016-09-13 12:05 | disposition home or self-care (01) | DRG 249 ==
LOC: EMEROO 15:18 → 2NENU 16:26 → 2NNU 09-11 13:13
PROVIDERS: ADMIT Nurse Practitioner Family; ATTEND Internal Medicine